=== PATIENT | male | born 1945 | race Two or more races ===

== ENCOUNTER 2023-04-05 15:57 | Emergency (ER) | payer OTHER ==
[~2023-04-05] VITALS: Ht 177.8 cm; Wt 83.9 kg
[~2023-04-05 15:57] MED LIST: LEVSOD25; OXYACE5T PO
[2023-04-05 16:35] LABS: BASOPHILS ABSOLUTE AUTO 0.04 K/mm3 (0.00-0.23); BASOPHILS PERCENT AUTO 1 % (0-2); EOSINOPHILS ABSOLUTE AUTO 0.15 K/mm3 (0.00-0.68); EOSINOPHILS PERCENT AUTO 2 % (0-6); Hematocrit 39.6 % (37.0-53.0); Hemoglobin 13.6 g/dL (13.5-17.5); IMMATURE GRAN ABSOLUTE AUTO 0.01 K/mm3 (0.00-0.10); IMMATURE GRAN PERCENT AUTO 0 % (0-1); LYMPHOCYTES ABSOLUTE AUTO 2.64 K/mm3 (0.84-5.20); LYMPHOCYTES PERCENT AUTO 34 % (21-46); MONOCYTES ABSOLUTE AUTO 0.57 K/mm3 (0.16-1.47); MONOCYTES PERCENT AUTO 7 % (4-13); Mean Corpuscular HGB Conc 34.3 g/dL (31.5-36.5); Mean Corpuscular Volume 93 fL (80-100); Mean Platelet Volume 10.8 fL (9.1-12.4); NEUTROPHILS ABSOLUTE AUTO 4.34 K/mm3 (1.96-9.15); NEUTROPHILS PERCENT AUTO 56 % (41-73); Platelet Count 168 K/mm3 (150-400); RDW Coefficient Variation 12.3 % (11.7-14.2); RDW Standard Deviation 42.3 fL (35.1-46.3); Red Blood Cell Count 4.25 M/mm3 (4.30-5.90); White Blood Cell Count 7.75 K/mm3 (4.00-11.30)
[2023-04-05 16:55] LABS: Albumin, Blood 3.7 g/dL (3.4-5.0); Albumin/Globulin Ratio 1.2 (0.8-1.8); Bilirubin, Total 0.4 mg/dL (0.1-1.0); Bun/Creatinine Ratio 18.3 (12.0-20.0); Calcium, Blood 8.8 mg/dL (8.5-10.1); Creatinine, Blood 1.15 mg/dL (0.60-1.20); Globulin, Blood 3.2 g/dL (2.2-4.0); Potassium, Blood 4.1 mmol/L (3.5-5.5); Total Protein, Blood 6.9 g/dL (6.4-8.2)
[2023-04-05 19:30] VITALS: BP 127/85
== END 2023-04-05 19:51 | disposition home or self-care (01) ==
LOC: ER 15:57
PROVIDERS: Physician Assistant
DX: R07.9 Chest pain, unspecified (principal); I10 Essential (primary) hypertension; F03.90 Unspecified dementia, unspecified severity, without behavioral disturbance, psychotic disturbance, mood disturbance, and anxiety; Z79.899 Other long term (current) drug therapy
CPT/HCPCS: 71046; 80053; 84484; 85025; 93005; 93010; 99285-25

== ENCOUNTER → 2023-10-30 | Outpatient (CLI) | payer OTHER | LOC: LAB SHORT 16:57 → LAB 16:57 | DX: D75.89 Other specified diseases of blood and blood-forming organs (principal); R23.2 Flushing | CPT/HCPCS: 82607; 82746 ==

== ENCOUNTER → 2023-11-07 | Outpatient (CLI) | payer OTHER ==
[2023-11-10 16:06] LABS: 5-HIAA URINE - PER 24H 5 mg/d (0-15); 5-HIAA URINE - RATIO TO CRT 3 mg/gCR (0-14); CREATININE, URINE - PER 24H 1728 mg/d (800-2100); CREATININE, URINE - PER VOLUME 144 mg/dL; HOURS COLLECTED 24 hr; TOTAL VOLUME 1200 mL
== END ==
LOC: LAB SHORT 09:52 → LAB 09:52 → LAB FUT 10-29 14:00
PROVIDERS: Internal Medicine Hematology & Oncology
DX: R23.2 Flushing (principal)
CPT/HCPCS: 81050; 83497

== ENCOUNTER 2024-03-02 05:12 | Emergency (ER) | payer OTHER ==
[~2024-03-02] VITALS: Ht 175.3 cm; Wt 81.7 kg
[2024-03-02 07:43] VITALS: BP 134/82
[2024-03-02] MEDS ORDERED: Silver Nitr/Potassium Nitrate 1 EA APPL TOP ONE (08:45)
== END 2024-03-02 08:59 | disposition home or self-care (01) ==
LOC: ER 05:12
DX: K64.4 Residual hemorrhoidal skin tags (principal); Z79.890 Hormone replacement therapy
CPT/HCPCS: 99282; A9270

== ENCOUNTER → 2024-03-05 | Outpatient (CLI) | payer OTHER ==
[2024-03-05 13:15] LABS: Free Thyroxine 0.83 ng/dL (0.70-1.60)
[2024-03-05 13:23] LABS: Thyroid Stimulating Hormone 3.68 uIU/mL (0.360-4.800); Triiodothyronine, Free 2.12 pg/mL (2.18-3.98)
== END ==
LOC: LAB 11:02 → LAB SHORT 11:02
PROVIDERS: General Practice
DX: E03.9 Hypothyroidism, unspecified (principal)
CPT/HCPCS: 84439; 84443; 84481

== ENCOUNTER 2024-04-03 06:06 | Day surgery (SDC) | payer OTHER ==
[2024-04-03] VITALS (10 sets, daily range): BP systolic 138–166; BP diastolic 75–103
[~2024-04-03] VITALS: Ht 175.3 cm; Wt 89.3 kg
[~2024-04-03 06:06] MED LIST changes: +B-12500 MC2 PO; +DONEPEZIL HCL10 MG PO; +IBUP800 PO; +THERA-D2000 UNIT PO; +ZOCOR20 MG PO
[2024-04-03] MEDS ORDERED: Lactated Ringer's 1,000 ML IV SCH (06:25)
[2024-04-03] MEDS ORDERED: Ampicillin Sod/Sulbactam Sod 3 GM in NS 100 ML IV SCH (06:25)
[2024-04-03] MEDS ORDERED: FentaNYL Citrate 50 MCG/ML 2 ML Injection ONE ×2 (07:00→08:40)
[2024-04-03] MEDS ORDERED: propofoL 20 ML IV ONE (07:00)
[2024-04-03] MEDS ORDERED: Dexamethasone Sod Phos 10 MG/ML 1ML VIAL ONE (07:01)
[2024-04-03] MEDS ORDERED: Lidocaine HCl 2% 20 ML MDV ONE (07:01)
[2024-04-03] MEDS ORDERED: Ondansetron HCl 2 MG / ML 2ML Vial ONE (07:01)
[2024-04-03] MEDS ORDERED: Bupivacaine 0.5% HCl 5 MG/ML 30MLVIAL ONE (07:05)
[2024-04-03] MEDS ORDERED: EpiNEPhrine 1 MG/1 ML 1ML Vial ONE (07:05)
[2024-04-03] MEDS ORDERED: Lidocaine 2%-Epineph 1:200000 20 ML SDV ONE (07:18)
[2024-04-03] MEDS ORDERED: Bacitracin Zinc Oint 1GRAM UD Packet TOP SCH (08:05)
[2024-04-03] MEDS ORDERED: OxyCODONE 5 mg/Acetamin 325 mg TABLET PO PRN (08:40)
--- NOTE | 2024-04-03 09:35 | NUR ---
Patient up to [employer] independently. Gait steady. Discharge instructions reviewed with patient. Patient verbalizes understanding. Copy given to patient to take home. Discharged via wheelchair to private car for ride home.
== END 2024-04-03 09:35 | disposition home or self-care (01) ==
LOC: ORSCMMR 06:06 → ORD 07:30 → ORSCMMR 07:30
PROVIDERS: Surgery
PROC: 06BY0ZC Excision of Hemorrhoidal Plexus, Open Approach (ICD-10-PCS; principal; 2024-04-03 07:30)
DX: K64.1 Second degree hemorrhoids (principal); K64.5 Perianal venous thrombosis; E78.5 Hyperlipidemia, unspecified; I10 Essential (primary) hypertension; E03.9 Hypothyroidism, unspecified; Z79.899 Other long term (current) drug therapy
CPT/HCPCS: 88304; 88305; J0171; J0295; J1100; J2405; J2704; J3010; J7120

== ENCOUNTER → 2024-06-06 | Outpatient (CLI) | payer OTHER ==
[2024-06-13 09:53] LABS: TESTOSTERONE, TOTAL MASS SPEC 217.2 ng/dL (300.0-720.0)
== END | disposition home or self-care (01) ==
LOC: LAB SHORT 17:13 → LAB 17:13
PROVIDERS: Internal Medicine Hematology & Oncology
DX: E29.1 Testicular hypofunction (principal)
CPT/HCPCS: 84402; 84403